=== PATIENT | female | born 1970 | race Asian ===

== ENCOUNTER 2024-10-23 12:33 | Emergency (ER) | payer OTHER ==
[2024-10-23] MEDS ORDERED: Sodium Chloride 0.9% 10 ML Syringe FLUSH PRN (13:22)
[2024-10-23 13:35] LABS: BASOPHILS PERCENT AUTO 0.3 % (0.0-1.0); EOSINOPHILS PERCENT AUTO 0.4 % (1.0-3.0); LYMPHOCYTES PERCENT AUTO 33.1 % (20.5-50.1); MONOCYTES PERCENT AUTO 9.3 % (2-8); NEUTROPHILS PERCENT AUTO 56.9 % (42.2-75.2); PLATELET COUNT,PLT 192 10^3/uL (150-450); RED BLOOD CELL COUNT 4.35 10^6/uL (4.2-5.4); WHITE BLOOD CELL COUNT,WBC 7.6 10^3/uL (5.0-10.0)
[2024-10-23] MEDS ORDERED: fentaNYL 100 MCG/2 ML SDV IVPUSH ONE (13:50)
[2024-10-23] MEDS: Iopamidol 755 Mg/ML 100 ML Bottle IVPUSH ONE (13:51)
[2024-10-23 13:54] LABS: A/G RATIO 0.9; ALANINE AMINOTRANSFERASE,ALT 22 U/L (14-59); ASPARTATE AMNIOTRANSFERASE,AST 15 U/L (15-37); BILIRUBIN TOTAL 0.4 mg/dL (0.2-1.0); BLOOD UREA NITROGEN,BUN 18 mg/dL (7-18); CARBON DIOXIDE,CO2 30 mmol/L (21-32); CHLORIDE,CL 108 mmol/L (98-107); CREATININE 1.04 mg/dL (0.55-1.02); EST CRCL DRUG DOSING (CG) 45.58 mL/min; GLUCOSE RANDOM 108 mg/dL (70-99); POTASSIUM,K 3.7 mmol/L (3.5-5.1); PROTEIN TOTAL,TP 7.3 g/dL (6.4-8.2); SODIUM,NA 145 mmol/L (136-145)
[2024-10-23 13:55] LABS: ESTIMATED GFR 63 mL/min (>=60)
[2024-10-23 13:59] LABS: HCG QUALITATIVE,SERUM NEGATIVE (NEGATIVE)
== END 2024-10-23 15:24 | disposition home or self-care (01) ==
LOC: DL.ED 12:33
DX: M54.50 Low back pain, unspecified (principal); R51.9 Headache, unspecified; V89.2XXA Person injured in unspecified motor-vehicle accident, traffic, initial encounter
CPT/HCPCS: 36415; 70450; 71260; 72125; 74177; 80053; 84703; 85025; 96374; 99284; Q9967